=== PATIENT | female | born 1930 | race Caucasian/White ===

== ENCOUNTER 2016-06-14 09:24 | Emergency (ER) | payer MEDICARE, OTHER, MEDICAID ==
[2016-06-14] VITALS (7 sets, daily range): BP systolic 135–146; BP diastolic 77–108; PULSE 70–80; RESP 15–20; O2SAT 95–97
--- NOTE | 2016-06-14 09:24 | ED.REPORT ---
HPI-Chest Pain 40 and Over Date of Service Jun 14, 2016 ED Provider: The patient is an 85 year old female with history of dementia, atrial fibrillation not anticoagulated, diabetes mellitus, hypertension, who was brought to the emergency department by EMS for chest pain that she noticed this morning when she woke up. According to medics the patient described her pain as "pressure" and it was reproducible with palpation. At this time she feels normal and is in no pain. She denies nausea, vomiting, diarrhea, abdominal pain , cough, shortness of breath, fever or chills. Nursing Notes Stated Complaint: CHEST PAIN Nursing Notes Reviewed: Yes Allergies: Uncoded Allergies: PCN, SULFA,CIPRO-DIARRHEA. (Allergy, Unknown, 07/09/04) Penicillin (Allergy, Unknown, 05/17/05) Sulfa (Allergy, Unknown, 05/17/05) Quinolones (Adverse Reaction, Unknown, 07/09/04) DIARRHEA General Time Seen by MD: 09:24 Chief Complaint Chest pain Hx Obtained From: Patient, EMS Arrived By: Ambulance Sudden in Onset?: Yes Onset Occurred: 1 - 4 hours ago Symptom Duration: Since onset Quality: Pressure Radiation: : Does not radiate Migration/Movement: Reports: None Severity: Current: No pain currently Severity: Maximum: Moderate Recent Healthcare: No recent doctor visit, No recent hospitalization Similar Sx Previous: No Past Medical History Past Medical History Atrial fibrillation - not on anticoagulation SBO Diabetes mellitus Dementia Hypertension Osteoarthritis Past Surgical History Bowel resection Hysterectomy Cholecystectomy Family History Noncontributory Smoking History Unknown if Ever Smoker Social History Other Social History: Good social support, Lives with children, Local resident Ambulatory Status Independent Review of Systems Constitutional: Denies: Chills, Fever Respiratory: Denies: Non-productive cough, Shortness of breath Cardiovascular: Reports: Chest pain GI: Denies: Abdominal pain, Diarrhea, Nausea, Vomiting Musculoskeletal: Reports: Joint pain (chronic pain due to osteoarthritis), Denies: Back pain, Extremity pain Skin: Denies Rash Complete sys rev & neg: except as marked. Physical Exam Initial Vital Signs Vital Signs (First) Date Time Temp Pulse Resp B/P Pulse Ox O2 Delivery O2 Flow Rate FiO2 06/14/16 09:34 36.6 80 17 144/82 97 Room Air Initial VS: Reviewed Head / Eyes: Atraumatic, Normocephalic, PERRL ENT: Mucous membranes moist, Conjunctiva normal, No scleral icterus Neck: Supple, Non-tender, Full range of motion Lymphatic: No lymphadenopathy Extremities: Vascular intact, Neuro intact, No swelling, No tenderness Skin: Warm, Dry, No cyanosis Neurologic: Alert, Nonfocal Psychiatric: Mood/affect normal, Behavior normal, Normal thought content General/Constitutional: Awake, Alert, No acute distress, Well appearing Respiratory / Chest: Atraumatic, Breath sounds NL, Breath sounds = bilat, No respiratory distress, No rales, No rhonchi, No wheezing, No stridor, No chest tenderness Cardiovascular: Heart rate NL, Regular rhythm, Heart sounds NL, No murmurs, Peripheral circulation NL, Pulses = bilaterally, No gross BP differential Abdomen: Soft, No guarding, No rebound, BS normoactive, No distention She has suprapubic tenderness on exam that she did not notice until I was pushing on her abdomen. Interpretation & Diagnostics Lab Results Interpretation Result Diagram: 06/14/16 0929 06/14/16 0929 Test 06/14/16 09:29 06/14/16 09:55 White Blood Count 8.3th/mm3 (3.8-10.1) Red Blood Count 5.67mil/mm3 (3.90-5.20) Hemoglobin 16.6g/dL (12.0-15.6) Hematocrit 49.9% (35.0-46.0) Mean Corpuscular Volume 88.0fL (81-100) Mean Corpuscular Hemoglobin 29.3pg (27.0-35.0) Mean Corpuscular Hemoglobin Concent 33.3% (32.0-37.0) Red Cell Distribution Width 14.2% (12.3-15.4) Platelet Count 297bil/L (150-400) Neutrophils (%) (Auto) 52.5% (40-74) Lymphocytes (%) (Auto) 37.8% (14-46) Monocytes (%) (Auto) 7.0% (4-12) Eosinophils (%) (Auto) 2.3% (0-5) Basophils (%) (Auto) 0.2% (0-3) Sodium Level 139mEq/L (134-144) Potassium Level 4.5mEq/L (3.5-5.2) Chloride Level 97mEq/L (97-108) Carbon Dioxide Level 26mmol/L (18-29) Blood Urea Nitrogen 18mg/dL (8-27) Creatinine 0.71mg/dL (0.57-1.00) Estimat Glomerular Filtration Rate 112mL/min (>59) Glucose Level 131mg/dL (60-99) Calcium Level 9.9mg/dL (8.5-10.1) Total Bilirubin 0.4mg/dL (0.0-1.2) Aspartate Amino Transf (AST/SGOT) 25U/L (0-50) Alanine Aminotransferase (ALT/SGPT) 17U/L (0-32) Alkaline Phosphatase 81U/L (25-165) Troponin T < 0.010ug/L (0.0-0.011) Total Protein 8.7g/dL (6.4-8.4) Albumin 4.6g/dL (3.4-5.0) Urine Color Straw (YELLOW) Urine Appearance Clear (CLEAR,HAZY) Urine pH 7.5 (5.0-8.0) Urine Specific [place] 1.009 (1.003-1.035) Urine Protein Negativemg/dL (NEG,TRACE) Urine Glucose (UA) Negativemg/dL (NEGATIVE) Urine Ketones Negativemg/dL (NEGATIVE) Urine Occult Blood Negative (NEGATIVE) Urine Nitrite Negative (NEGATIVE) Urine Bilirubin Negative (NEGATIVE) Urine Urobilinogen Normalmg/dL (NORMAL) Urine Leukocyte Esterase Negative (NEGATIVE) Urine RBC 0-2/hpf (0-2) Urine WBC 0-5/hpf (0-5) Urine Epithelial Cells Few/hpf (NONE-MOD) Urine Crystals None seen (NONE SEEN) Urine Bacteria None/hpf (NONE-FEW) Urine Hyaline Casts None/lpf (NONE) Urine Granular Casts None seen (NONE SEEN) Urine Waxy Casts None seen (NONE SEEN) Urine Red Blood Cell Casts None seen (NONE SEEN) Urine White Blood Cell Casts None seen (NONE SEEN) Urine Mucus None seen (None Seen) Urine Trichomonas None seen (NONE SEEN) Urine Yeast None (NONE SEEN) Urinalysis Comment None Urine Culture Reflexed Not indicated ECG Interpretation ECG Interpretation: Atrial fibrillation with a rate of 73 Time: 09:59 Interpreted by: ED physician X-Ray Chest Interpretation Chest Xray Interpretation: IMPRESSION: Mild cardiomegaly, without acute cardiopulmonary disease. Dictated by: Zander Richard M.D. on 06/14/2016 at 10:18 Interpretation / Wet Read by: Interpret - Radiologist Re-Eval/Medical Decision Source of Hx: Old records, EMS, Family Time of Eval: 10:44 Re-Evaluation/Progress Note: Rechecked the patient. Discussed plan for workup with the patient's family members. She lives with her daughter who woke up to the patient pressing her medical alert. She was complaining of chest pain at this time. The patient felt normal yesterday. At this time her pain is still resolved. Time of Eval: 11:27 Re-Evaluation/Progress Note: Rechecked the patient. Discussed results, diagnosis, and plan for discharge. All questions were addressed. Counseled Regarding: Diagnosis, Lab results, Need for follow-up, When/why to return to ED Discharge & Departure Primary Impression: Chest pain Chest pain type: unspecified Qualified Code: R07.9 - Chest pain, unspecified Discharge Condition All VS Reviewed: Yes Condition: Stable Additional Instructions: Thank you for entrusting us with your care today. Your labs, EKG, and chest x- ray today are reassuring. There is no evidence of anything acutely dangerous at this time. Call Dr. José's office tomorrow morning to schedule a followup appointment for later this week. Return to the emergency department if you develop recurrent pain, shortness of breath, extremity swelling, lightheadedness , dizziness, or any other new or concerning symptoms. Referrals: Inocencio José MD (PCP) Scribe Attestation Portions of this note were transcribed by Sabrina Perkins. I, Dr. Fahad Garcia personally performed the history, physical exam and medical decision-making; I reviewed and confirmed the accuracy of the information in the transcribed note. Signed by: Shaina Russell, 06/14/2015 and 1135. copies to: Inocencio José MD, Kirk H MD Jun 14, 2016 09:24 Sabrina Perkins Jun 14, 2016 09:32
[2016-06-14 09:48] LABS: BASOPHILS % (AUTO) 0.2 % (0-3); EOSINOPHILS % (AUTO) 2.3 % (0-5); Mean Corpuscular Hemoglobin 29.3 pg (27.0-35.0); NEUTROPHILS % (AUTO) 52.5 % (40-74); Platelet Count 297 bil/L (150-400)
[2016-06-14 10:18] LABS: TROPONIN T < 0.010 ug/L (0.0-0.011)
--- NOTE | 2016-06-14 10:20 | DRSVH ---
PROCEDURE: X-RAY CHEST ONE VIEW, PORTABLE ([id number]) INDICATIONS: 85 year-old female with chest pain. TECHNIQUE: One view of the chest was acquired. COMPARISON: [facility], , ABD ACUTE SERIES, 09/01/2014, 20:51. [facility], , CHEST 1VW (PORTABLE), 10/31/2013, 8:50. [facility], CHEST 1VW (PORTABLE), 10/11, 4:31. FINDINGS: Surgical changes and devices: None. Lungs and pleura: No pleural effusions or pneumothorax. Lungs are clear. Mediastinum: Mediastinal contours appear normal. Mild cardiomegaly is unchanged. Bones and chest wall: No suspicious bony lesions. Overlying soft tissues appear unremarkable. IMPRESSION: Mild cardiomegaly, without acute cardiopulmonary disease. Dictated by: Zander Richard M.D. on 06/14/2016 at 10:18 Approved by: Zander Richard M.D. on 06/14/2016 at 10:18
[2016-06-14 10:52] LABS: APPEARANCE,URINE CLEAR (CLEAR,HAZY); COLOR,URINE STRAW (YELLOW); OCCULT BLOOD,URINE NEGATIVE (NEGATIVE); PH,URINE 7.5 (5.0-8.0); UROBILINOGEN,URINE NORMAL (NORMAL)
== END 2016-06-14 12:17 | disposition home or self-care (01) ==
LOC: SED 09:24
DX: R07.89 Other chest pain (principal); I48.91 Unspecified atrial fibrillation; I10 Essential (primary) hypertension; E11.9 Type 2 diabetes mellitus without complications; F03.90 Unspecified dementia, unspecified severity, without behavioral disturbance, psychotic disturbance, mood disturbance, and anxiety; Z88.0 Allergy status to penicillin; Z88.1 Allergy status to other antibiotic agents; Z88.2 Allergy status to sulfonamides

== ENCOUNTER 2016-07-04 12:25 | Observation (INO) | payer MEDICARE, OTHER, MEDICAID ==
[~2016-07-04] VITALS: Ht 165.1 cm; Wt 74.6 kg
[2016-07-04 12:27] VITALS: BP 125/101; PULSE 104; RESP 22; O2SAT 96
[2016-07-04] MEDS ORDERED: Haloperidol 5 mg/mL Inj IVPUSH ONE ×2 (12:50→16:40)
--- NOTE | 2016-07-04 12:50 | ED.REPORT ---
HPI-Altered Mental Status Date of Service Jul 04, 2016 ED Provider: Larry Ordaz MD Pt is an 85 year old female with a hx of dementia, DM and HTN presenting to the ED via EMS complaining of a change in LOC onset at 1125. The pt was with her daughters and right after she ate breakfast, she became combative, was only responsive to her name, and was pulling at her clothes, trying to take them off. The daughters deny these symptoms previously. She denies any recent changes in medication. In the ER, pt is responsive to questions, but is confused of her birthday and location. She denies any pain. The pt was seen in the ED in the beginning of June for CP. Nursing Notes Stated Complaint: NEURAL Chief Complaint: Neuro Symptoms/ Deficits Nursing Notes Reviewed: Yes ([place], [place] not reconciled) Allergies: Coded Allergies: amoxicillin (Verified Allergy, Unknown, 07/04/16) donepezil (Verified Allergy, Unknown, 07/04/16) lorazepam (Verified Allergy, Unknown, 07/04/16) promethazine (Verified Allergy, Unknown, 07/04/16) Uncoded Allergies: PCN, SULFA,CIPRO-DIARRHEA. (Allergy, Unknown, 07/09/04) Penicillin (Allergy, Unknown, 05/17/05) Sulfa (Allergy, Unknown, 05/17/05) Quinolones (Adverse Reaction, Unknown, 07/09/04) DIARRHEA Scheduled Amlodipine (Amlodipine) 5 Mg Tablet 5 MG PO DAILY Magnesium Oxide (Magnesium) 250 Mg Tablet 250 MG PO BID Metformin (Metformin) 500 Mg Tablet 500 MG PO BID Scheduled PRN Hydrocodone-Acetaminophen 5-325 mg (Hydrocodone-Acetaminophen 5-325 mg) 1 Each Tablet 1.5 TABLET PO BID PRN PRN For Pain Miscellaneous Medications Cholecalciferol (Vitamin D3) (Vitamin D3) 5,000 Unit Capsule 5,000 UNIT PO Oxybutynin Chloride (Oxybutynin Chloride) 5 Mg Tablet 5 MG PO General Time Seen by MD: 12:20 Chief Complaint Not acting right Hx Obtained From: Patient, EMS Arrived By: Ambulance Sudden in Onset?: Yes Onset Occurred: 1 - 4 hours ago Symptom Duration: Since onset Progression since Onset: Unchanged Severity: Current: No pain currently Severity: Maximum: No pain Recent Healthcare: No recent hospitalization, Recent doctor visit Similar Sx Previous: No Past Medical History Past Medical History Atrial fibrillation - not on anticoagulation SBO Diabetes mellitus Dementia Hypertension Osteoarthritis Past Surgical History Laparotomy for perforated colon Appendectomy Tonsillectomy Hysterectomy Cholecystectomy Ankle Right carpal tunnel Cataracts Family History Noncontributory Smoking History Unknown if Ever Smoker Social History Other Social History: Good social support, Lives with children, Local resident Ambulatory Status Independent Review of Systems Unable to Obtain ROS Mental status Neurologic: Reports: Abnormal movement, Change LOC Psychiatric: Reports: Agitation Physical Exam Initial Vital Signs Vital Signs (First) Date Time Temp Pulse Resp B/P Pulse Ox O2 Delivery O2 Flow Rate FiO2 07/04/16 12:27 36.0 104 22 125/101 96 Room Air Initial VS: Reviewed, Vital signs abnormal ENT: Mucous membranes moist, Conjunctiva normal, No scleral icterus Abdomen / GI: Soft Skin: Warm, Dry, No cyanosis Psychiatric: Mood/affect normal, Behavior normal, Normal thought content General/Constitutional: Awake Restless and agitated. No signs of trauma. Head / Eyes: Atraumatic, Normocephalic, PERRL, EOMI Neck: Atraumatic, Supple Respiratory / Chest: Breath sounds NL, Breath sounds = bilat, No respiratory distress, No rales, No rhonchi, No wheezing Cardiovascular: Heart rate NL, Regular rhythm, Heart sounds NL, No murmurs, Peripheral circulation NL Neurologic: Speech NL Confused, won't answer questions. Moves symmetrically without gross focal deficit. Lower Extremity / Pelvis / MS: Neurologic intact, Vascular intact Trace edema of ankles. Interpretation & Diagnostics Lab Results Interpretation Result Diagram: 07/04/16 1439 07/04/16 1439 Test 07/04/16 12:50 07/04/16 14:39 Urine Color Yellow (YELLOW) Urine Appearance Clear (CLEAR,HAZY) Urine pH 6.5 (5.0-8.0) Urine Specific [place] 1.020 (1.003-1.035) Urine Protein Tracemg/dL (NEG,TRACE) Urine Glucose (UA) 250mg/dL (NEGATIVE) Urine Ketones Negativemg/dL (NEGATIVE) Urine Occult Blood Negative (NEGATIVE) Urine Nitrite Negative (NEGATIVE) Urine Bilirubin Negative (NEGATIVE) Urine Urobilinogen Normalmg/dL (NORMAL) Urine Leukocyte Esterase Negative (NEGATIVE) Urine RBC 0-2/hpf (0-2) Urine WBC 0-5/hpf (0-5) Urine Epithelial Cells Few/hpf (NONE-MOD) Urine Crystals None seen (NONE SEEN) Urine Bacteria None/hpf (NONE-FEW) Urine Hyaline Casts None/lpf (NONE) Urine Granular Casts None seen (NONE SEEN) Urine Waxy Casts None seen (NONE SEEN) Urine Red Blood Cell Casts None seen (NONE SEEN) Urine White Blood Cell Casts None seen (NONE SEEN) Urine Mucus None seen (None Seen) Urine Trichomonas None seen (NONE SEEN) Urine Yeast None (NONE SEEN) Urinalysis Comment None Urine Culture Reflexed Not indicated White Blood Count 10.4th/mm3 (3.8-10.1) Red Blood Count 5.21mil/mm3 (3.90-5.20) Hemoglobin 15.5g/dL (12.0-15.6) Hematocrit 45.2% (35.0-46.0) Mean Corpuscular Volume 86.8fL (81-100) Mean Corpuscular Hemoglobin 29.8pg (27.0-35.0) Mean Corpuscular Hemoglobin Concent 34.3% (32.0-37.0) Red Cell Distribution Width 13.7% (12.3-15.4) Platelet Count 288bil/L (150-400) Neutrophils (%) (Auto) 74.8% (40-74) Lymphocytes (%) (Auto) 18.2% (14-46) Monocytes (%) (Auto) 5.8% (4-12) Eosinophils (%) (Auto) 0.8% (0-5) Basophils (%) (Auto) 0.2% (0-3) Prothrombin Time 10.6sec (8.1-12.5) Prothromb Time International Ratio 0.99ratio Sodium Level 140mEq/L (134-144) Potassium Level 4.5mEq/L (3.5-5.2) Chloride Level 98mEq/L (97-108) Carbon Dioxide Level 26mmol/L (18-29) Blood Urea Nitrogen 21mg/dL (8-27) Creatinine 0.89mg/dL (0.57-1.00) Estimat Glomerular Filtration Rate 86mL/min (>59) Glucose Level 214mg/dL (60-99) Calcium Level 9.7mg/dL (8.5-10.1) Total Bilirubin 0.4mg/dL (0.0-1.2) Aspartate Amino Transf (AST/SGOT) 34U/L (0-50) Alanine Aminotransferase (ALT/SGPT) 21U/L (0-32) Alkaline Phosphatase 77U/L (25-165) Troponin T 0.022ug/L (0.0-0.011) Total Protein 8.1g/dL (6.4-8.4) Albumin 4.4g/dL (3.4-5.0) Lab Results Interpretation: UA is negative ECG Interpretation ECG Interpretation: Rate controlled afib. Q waves anteriorally. Prior old anteroseptal infarct. Nonspecific T wave abnormality laterally, 1 ABL, not clear that they are changed. Interval change from June 14 2016. Time: 13:07 Interpreted by: ED physician X-Ray Chest Interpretation Chest Xray Interpretation: IMPRESSION: Low lung volumes and mild cardiomegaly. Dictated by: Alivia Cheung M.D. on 07/04/2016 at 13:51 View: Portable, 1 view Interpretation / Wet Read by: Interpret - Radiologist CT Head Interpretation IMPRESSION: 1. No acute intracranial findings. 2. Extensive findings associated with chronic microvascular ischemic changes. Dictated by: Alivia Cheung M.D. on 07/04/2016 at 13:59 Study: Head CT no contrast Interpretation / Wet Read by: Interpret - Radiologist Re-Eval/Medical Decision Med Decision/Clinical Course This is an 85-year-old female with a history of chronic atrial fibrillation not on anticoagulation presents with sudden onset patient. Other family, got to the bathroom, was being assisted in 7 became disoriented, and agitated and absolutely not herself. There was no gross focal deficits-no obvious weakness extremity or leg, but a profound change occurred. This happened at around 11: 30. No current history of trauma, infection, medication change. Accu-Chek was normal for EMS. On arrival patient still agitated she trying to get up out of bed, she will not cooperate with exam, she will not interact normally or follow commands for an NIH stroke scale, but she struggles symmetrically uses both arms and both legs without gross deficit and she moves around. She will answer an occasional question when asked if the pain she says no. But she does not provide any follow-up questions or interact normally. She does have a baseline history of dementia, but this represents a sudden departure from baseline according the family. Workup is being pursued. Accu-Chek was normal. CT scan of the head was obtained, was negative acute, but lots of microvascular changes. Initial attempts at IV were unsuccessful. The family thought they might be able to settle her down and reports she has had some paradoxical reactions to all antipsychotics about 6 years ago so they wanted to hold off and see if the family members can help settle her down. Successful getting her calmed down for CT, which is more agitated, attempts at IV were unsuccessful, and finally agreed-the patient received an IM dose of 2.5 mg of Haldol. The patient is being turned over to oncoming provider at change of shift as the evaluation is still underway. Source of Hx: Old records Re-Evaluation/Progress #1: Time of Eval: 13:23 Patient Status: Condition improved Re-Evaluation/Progress Note: Discussed the episode with the pt's family. Re-Evaluation/Progress #2: Time of Eval: 16:49 )( Re-Eval Neurologic Exam: Confused Re-Evaluation/Progress Note: Dr. Winslow rechecked patient. Discussed history with patient's family. The patient has had a previous episode of similar symptoms many years ago, which resolved with no known cause found. Code status discussed with patient's family, patient is DNR with limited interventions - antibiotics okay. Discussed with patient's family plan for admit. Patient's family agrees with plan for care and all questions were addressed. On exam patient's lungs are clear, abdomen soft and non-tender. She is agitated and confused, moving all four extremities spontaneously and equally, with nonsensical verbalizations. 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, Agrees with plan, Accepts admit Counseled Regarding: Diagnosis, Lab results, Need for admission Patient Discharge & Departure Shift Change Sign-Out Patient Care Transferred: Yes Discussed Complaint(s): Yes Laboratory Evaluation: Ordered, not yet done Imaging Studies: Imaging discussed Impression: Primary Impression: Altered mental status Altered mental status type: unspecified Qualified Code: R41.82 - Altered mental status, unspecified Additional Impression: Agitation Disposition: ADMITTED TO HOSPITAL Discharge Condition All VS Reviewed: Yes Condition: Improved Referrals: Inocencio José MD (PCP) Shaina Attestation Portions of this note were transcribed by Lori Garrett. I, Dr. Ordaz personally performed the history, physical exam and medical decision-making; I reviewed and confirmed the accuracy of the information in the transcribed note. Signed by: Shaina Cox, 04/07/2016 and 1450. Portions of this note were transcribed by Teri Zayas. I, Dr. Winslow, personally performed the history, physical exam, and medical decision-making; I reviewed and confirmed the accuracy of the information in the transcribed note. Signed by: Shaina Gilbert, 07/04/2016, 17:26 copies to: Inocencio José MD, Matthew F MD Jul 04, 2016 12:50 LORI AGRRETT Jul 04, 2016 12:52 TERI ZAYAS Jul 04, 2016 16:58
[2016-07-04] MEDS ORDERED: METF500T4 PO (13:37)
[2016-07-04] MEDS ORDERED: CHOL5000 PO (13:37)
[2016-07-04] MEDS ORDERED: MAGN250T29 PO (13:37)
[2016-07-04] MEDS ORDERED: AMLO5TAB2 PO (13:37)
[2016-07-04] MEDS ORDERED: OXYB5TAB10 PO (13:37)
[2016-07-04 13:38] LABS: APPEARANCE,URINE CLEAR (CLEAR,HAZY); COLOR,URINE YELLOW (YELLOW); PH,URINE 6.5 (5.0-8.0)
[2016-07-04] MEDS ORDERED: HYDR-4003 PO ×2 (13:39→19:41)
[2016-07-04 13:44] LABS: OCCULT BLOOD,URINE NEGATIVE (NEGATIVE); UROBILINOGEN,URINE NORMAL (NORMAL)
--- NOTE | 2016-07-04 13:54 | DRSVH ---
PROCEDURE: X-RAY CHEST ONE VIEW, PORTABLE ([id number]) INDICATIONS: Altered mental status TECHNIQUE: One view of the chest was acquired. COMPARISON: [facility], CR, XR CHEST 1VW (PORTABLE), 06/14/2016, 10:06. FINDINGS: Surgical changes and devices: None. Lungs and pleura: Lung volumes are low. No pleural effusions or pneumothorax. Lungs are clear. Mediastinum: Mediastinal contours appear normal. Heart size is mildly enlarged, as before. Bones and chest wall: No suspicious bony lesions. Overlying soft tissues appear unremarkable. IMPRESSION: Low lung volumes and mild cardiomegaly. Dictated by: Alivia Cheung M.D. on 07/04/2016 at 13:51 Approved by: Alivia Cheung M.D. on 07/04/2016 at 13:52
--- NOTE | 2016-07-04 14:03 | DRSVH ---
PROCEDURE: CT BRAIN WITHOUT CONTRAST ([id number]) INDICATIONS: Altered Mental Status TECHNIQUE: Noncontrast 4.5 mm thick angled axial sections acquired from the foramen magnum to the vertex, with c oronal reformats. COMPARISON: [facility], [place], CT, BRAIN W/O CONTRAST, 08/23/2014, 20:59. FINDINGS: Image quality: Excellent. CSF spaces: Basal cisterns are patent. No extra-axial fluid collections. The ventricles are symmet sherly in size and shape. Brain: No intracranial bleeds or masses. There is marked cerebral volume loss for age, with resulta nt ventricular and sulcal prominence. There are severe periventricular and deep white matter chronic small vessel ischemic changes. There is intracranial internal carotid artery atherosclerosis. Ther e are basal ganglia calcifications. Skull and face: Calvarium and visualized facial bones appear intact, without suspicious lesions. Sinuses: Visualized sinuses and mastoids are clear. IMPRESSION: 1. No acute intracranial findings. 2. Extensive findings associated with chronic microvascular ischemic changes. Dictated by: Alivia Cheung M.D. on 07/04/2016 at 13:59 Approved by: Alivia Cheung M.D. on 07/04/2016 at 14:01
[2016-07-04 15:38] LABS: BASOPHILS % (AUTO) 0.2 % (0-3); EOSINOPHILS % (AUTO) 0.8 % (0-5); MONOCYTES % (AUTO) 5.8 % (4-12); Mean Corpuscular Hemoglobin 29.8 pg (27.0-35.0); Mean Corpuscular Volume 86.8 fL (81-100); NEUTROPHILS % (AUTO) 74.8 % (40-74); Platelet Count 288 bil/L (150-400)
[2016-07-04 15:51] LABS: INR 0.99 ratio
[2016-07-04 17:32] VITALS: BP 147/98
[2016-07-04] MEDS ORDERED: Ondansetron 2 mg/mL 2 mL Inj IV PRN (17:45)
[2016-07-04] MEDS ORDERED: CEFTRIAXONE IV SCH (21:05)
[2016-07-04] MEDS ORDERED: DEXTROSE 5% IV SCH (21:05)
[2016-07-04] MEDS: Nystatin 100,000 Unit/Gm 15 Gm Powder TOPICAL SCH (22:05)
--- NOTE | 2016-07-04 22:15 | PCM.HPMED ---
Subjective Date of Service Jul 04, 2016 Primary Provider: Admitting Physician: Johnny Sandoval MD Primary Care Physician: Inocencio José MD Attending Physician: Johnny Sandoval MD Chief Complaint: Irritable HISTORY was OBTAINED FROM DAUGHTER/ [facility] NOTES History of present illness 85-year-old female, rhinorrhea, progressive dementia in the last 3 years, family members getting over URI, went to the bathroom this morning came around confused then not responsive verbally to daughter then started flailing her arms and legs despite the fact that she Saying Nothing Hurt. In the emergency department, Haldol 2 since she was flailing at staff, improved with Panther tent and Haldol, WBC mildly elevated with left shift.No prior meningitis/encephalitis. With every illness recently that was associated with Ativan or anesthetic she seems to have encephalopathy that lasts for many days. Daughter indicates she has chronic diarrhea/constipation since resection decades ago. Intermittent sacral decubitus. Current groin intertrigo. Chronic oxybutynin use. Review of Systems - unable to ask questions due to altered mental status Uses walker at baseline FAMILY HX daughter with cough SOCIAL HX staying with daughter MEDICATIONS Scheduled Amlodipine (Amlodipine) 5 Mg Tablet 5 MG PO DAILY Magnesium Oxide (Magnesium) 250 Mg Tablet 250 MG PO BID Metformin (Metformin) 500 Mg Tablet 500 MG PO BID Scheduled PRN Hydrocodone-Acetaminophen 5-325 mg (Hydrocodone-Acetaminophen 5-325 mg) 1 Each Tablet 1.5 TABLET PO BID PRN PRN For Pain Miscellaneous Medications Cholecalciferol (Vitamin D3) (Vitamin D3) 5,000 Unit Capsule 5,000 UNIT PO Oxybutynin Chloride (Oxybutynin Chloride) 5 Mg Tablet 5 MG PO Past Medical/Surgical HX Diabetes mellitus type II Chronically low magnesium Small bowel obstruction status post lysis of adhesion and prior colon resection due to perforated colon Dementia Overactive bladder Hypertension Osteoarthritis appendectomy Tonsillectomy Hysterectomy Cholecystectomy Ankle Right carpal tunnel Cataracts Allergies Coded Allergies: amoxicillin (Verified Allergy, Unknown, 07/04/16) donepezil (Verified Allergy, Unknown, 07/04/16) lorazepam (Verified Allergy, Unknown, 07/04/16) promethazine (Verified Allergy, Unknown, 07/04/16) Uncoded Allergies: PCN, SULFA,CIPRO-DIARRHEA. (Allergy, Unknown, 07/09/04) Penicillin (Allergy, Unknown, 05/17/05) Sulfa (Allergy, Unknown, 05/17/05) Quinolones (Adverse Reaction, Unknown, 07/09/04) DIARRHEA PMH Social History Hx Alcohol Use: No Hx Substance Use: No Hx Tobacco Use: No Smoking Status: Unknown if Ever Smoker Exam Vital Signs Vital Sign - Last Date Time Temp Pulse Resp B/P Pulse Ox O2 Delivery O2 Flow Rate FiO2 07/04/16 17:32 147/98 07/04/16 12:27 36.0 104 22 96 Room Air Lab and Diagnostics Labs Exam on admission NAD alert, asking for sip of water, constantly in putting blankets on and off, in the Panther tent comfortable NC/AT no icterus no injected eyes EOMI PERRL /no pharyngeal lesions/ no oral lesions / hearing intact//no enlarged parotids Supple neck, reflexes by herself on command, opens mouth by herself on command CTAB equal chest rise / no accessory muscle use / speaks in full sentences / no rrw RRR S1 S2 / no mrg / 2+ radial pulses Soft nt nd + BS no hepatosplenomegaly No edema no cyanosis no ecchymosis of lower extremities No rash / no jaundice GARCIA EKG afib no significant ST changes UA neg pending respiratory viral pcr /u strep pending stool cx Imaging CT BRAIN WITHOUT CONTRAST ([id number]) INDICATIONS: Altered Mental Status TECHNIQUE: Noncontrast 4.5 mm thick angled axial sections acquired from the foramen magnum to the vertex, with coronal reformats. COMPARISON: [facility], CT, BRAIN W/O CONTRAST, 08/23/2014, 20:59. FINDINGS: Image quality: Excellent. CSF spaces: Basal cisterns are patent. No extra-axial fluid collections. The ventricles are symmetric in size and shape. Brain: No intracranial bleeds or masses. There is marked cerebral volume loss for age, with resultant ventricular and sulcal prominence. There are severe periventricular and deep white matter chronic small vessel ischemic changes. There is intracranial internal carotid artery atherosclerosis. There are basal ganglia calcifications. Skull and face: Calvarium and visualized facial bones appear intact, without suspicious lesions. Sinuses: Visualized sinuses and mastoids are clear. IMPRESSION: 1. No acute intracranial findings. 2. Extensive findings associated with chronic microvascular ischemic changes. X-RAY CHEST ONE VIEW, PORTABLE ([id number]) INDICATIONS: Altered mental status TECHNIQUE: One view of the chest was acquired. COMPARISON: [facility], CR, XR CHEST 1VW (PORTABLE), 06/14/2016, 10: 06. FINDINGS: Surgical changes and devices: None. Lungs and pleura: Lung volumes are low. No pleural effusions or pneumothorax. Lungs are clear. Mediastinum: Mediastinal contours appear normal. Heart size is mildly enlarged , as before. Bones and chest wall: No suspicious bony lesions. Overlying soft tissues appear unremarkable. IMPRESSION: Low lung volumes and mild cardiomegaly. Result Diagram: 07/04/16 1439 07/04/16 1439 Assessment & Plan Active issues and reason for admission Encephalopathy with leukocytosis, treating as meningitis, home sick URI contacts --rocephine 2g x 1, pending pcr respiratory diarrhea/chronic intermittent --pending stool cx Chronic issues known prior to admission, present on admission Diabetes mellitus type II Chronically low magnesium Small bowel obstruction status post lysis of adhesion and prior resection due to ulcerations Dementia Overactive bladder --SSI, discussed w/ daughter regarding stopping oxybutynin in dementia patient due to anticholinergic effect and to f/u w/ urologist --held all po meds for now Diet DM DVT prophylaxis lovenox Code discuss w/ daughter in the morning Assessment and plan were discussed with daughter on the phone Johnny Sandoval MD Jul 04, 2016 22:15
--- NOTE | 2016-07-04 22:30 | NUR ---
admit Pt arrived in soma bed, daughters with her, belongings with daughters. Pt uncooperative, confused, and agitated. Admit nurse did admission receiving information from daughters. Will monitor.
[2016-07-05 00:18] VITALS: BP 139/75; PULSE 75; RESP 20; O2SAT 95
--- NOTE | 2016-07-05 01:30 | NUR ---
mentation Pt slept well, up to bedside commode x2 with nurse and ROLLER BEARING INSPECTOR. Cooperative and pleasant, confused. Will continue to monitor.
[2016-07-05 05:45] VITALS: BP 145/93; PULSE 86; RESP 20; O2SAT 95
[2016-07-05 06:19] LABS: BASOPHILS % (AUTO) 0.4 % (0-3); EOSINOPHILS % (AUTO) 0.8 % (0-5); MONOCYTES % (AUTO) 10.2 % (4-12); Mean Corpuscular Hemoglobin 29.9 pg (27.0-35.0); Mean Corpuscular Volume 85.2 fL (81-100); Platelet Count 303 bil/L (150-400)
--- NOTE | 2016-07-05 06:28 | NUR ---
mentation Significant improvement, pt stated name, and knew she was in the hospital. Said she was not sure which hospital. No complaints of pain or discomfort. Cooperative with cares and conversational. Will continue to monitor.
[2016-07-05 06:40] LABS: Magnesium 1.9 mg/dL (1.6-2.6)
[2016-07-05] MEDS ORDERED: Glucose 40% Oral Gel 15 Gm Tube PO PRN (08:05)
[2016-07-05] MEDS: Nystatin 100,000 Unit/Gm 15 Gm Powder TOPICAL SCH ×2 (08:30→20:30)
[2016-07-05 09:23] VITALS: BP 142/84; PULSE 70; RESP 19; O2SAT 98
--- NOTE | 2016-07-05 10:19 | PCM.PNMED ---
Subjective Date of Service Jul 05, 2016 Subjective Mentation improved from admission per nursing reports. Patient is evaluated at bedside. confused. AOx1 On return visit, she was AOx3, eating lunch. Conversing with sisters. Sisters states that patient is near her baseline. Exam Vital Signs Vital Sign - Last Date Time Temp Pulse Resp B/P Pulse Ox O2 Delivery O2 Flow Rate FiO2 07/05/16 09:23 36.8 70 19 142/84 98 Room Air Exam General: lying comfortably in soma bed HEENT: EOMI. Anicteric sclerae, Moist Mucous Membranes Neck: Neck supple with full ROM, no tenderness or stiffness with flexion Chest & Lungs: b/l air sound, no crackles, wheezes, or coarse breathing Cardiovascular: RRR, No Murmurs/Rubs/Gallops Abdomen: Soft, obese, Non-tender, Non-distended, No masses, Normoactive bowel tones, Extremities: no cyanosis/clubbing/edema bilaterally Neurological: alert and oriented x3, no focal deficits IVs and Medications Medications Reviewed: Medications were reviewed in detail Lab and Diagnostics Result Diagram: 07/05/16 0545 07/05/16 0545 Assessment & Plan Patient is an 85yof with MHx DMII, dementia, HTN, and colon resection presented with acute AMS, initially admitted for presumed meningitis. AMS, present on admission, resolving -- Mentation improved from the initial presentation in a wax-wane pattern -- Electrolytes and CBC unremarkable. Respiratory PCR negative including procalcitonin -- CT-head unremarkable for acute changes, showed extensive microvascular ischemic changes. -- Altered mentation most likely multifactorial: dementia worsened by Oxybutynin -- Added thiamine, holding oxybutynin indefinitely, and D/c ceftriaxone/[facility] bed. Chronic diarrhea, present on admission, stable -- Stool PCR pending -- Patient does not have any diarrhea while here however. Diabetes mellitus type II, non insulin dependent, present on admission, stable -- Placed on sliding scale. 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 -- Abstain from anticholinergics Overactive bladder, present on admission, ongoing -- D/c oxybutynin -- Will need to coordinate with PCP out patient for alternatives Disposition: patient will likely be d/c tmrw, pending continue improvement of metal status. Attending Statement The patient was seen and examined together with Dr. Scooby Moreau on 07/05/2016 and I agree with the history, exam and plan as outlined in the note above. Scooby Morris DO Jul 05, 2016 10:19 Trip Ríos MD Jul 05, 2016 14:49
[2016-07-05] MEDS ORDERED: Insulin LISPRO 300 Unit/3 mL Inj SUBQ SCH (12:00)
[2016-07-05] MEDS: Insulin LISPRO Low-Dose Scale SUBQ SCH ×3 (12:00→22:00)
--- NOTE | 2016-07-05 12:18 | NUR ---
Evaluation completed. Please go to "Notes" then click on "Assessments and Notes" (bottom left corner of screen). Then select appropriate discipline tab on top of screen.
[2016-07-05 14:05] VITALS: BP 110/68; PULSE 69; RESP 19; O2SAT 97
--- NOTE | 2016-07-05 15:06 | NUR ---
Case Management: TAY given and explained. Patient signed, original in chart. copy given to patient. 07/05/16 at 2:50pm. CPerryRNCCM.
[2016-07-05] MEDS: HYDROcodone-APAP 7.5-325 mg Tablet PO PRN (15:07)
--- NOTE | 2016-07-05 16:20 | NUR ---
Social Work-initial assessment: Data:See initial assessment. Pt is a 85 y/o female who was admitted on 07/04/16 for AMS per H&P. Pt's insurance is [facility] and PCP is Inocencio José MD. EMR Reviewed. ANTOLIN met with pt's daughter Cielo [phone] and Carol [phone] at bedside to discuss discharge planning, SW role explained. Pt resides at home with daughter Cielo who provides 24/7 care for pt. If Cielo is not home, she has people set up to be with pt. Pt uses a fww at baseline and does not drive. Pt has no HH history, but has been to [facility] in the past. Pt has no alf care or VA benefits. SW discussed DPOA/ advanced directive with family, daughters states they have completed this paperwork, SW encouraged them to bring a copy into the hospital. Daughter states pt is almost back at her baseline and will plan to take pt home at discharge. R/O HH services. SW placed phone number and plan on white board in room. SW will continue to follow. Assessment:Pt who has 24/7 care at home. Plan:Pt to discharge home with daughter when medically stable. R/O HH services. SW will continue to follow. KALEB Talavera Addendum: 07/05/16 at 1624 by SHAVON MUJICA SS Amended: Links added.
--- NOTE | 2016-07-05 16:40 | NUR ---
spiritual care: pt request caring/conversational visit. dtrs in room, pt engaged conversationally, pleasantly. some confusion, but pt seemed eager to show her grasp of details, surroundings and memory. Pt jain, not currently connected with moravian, recalled hymns and prayer as source of comfort/alignment. Family shared memories of pt's son-- of illness in 2013.
[2016-07-05] MEDS ORDERED: Haloperidol Decanoate 50 mg/mL Inj IM PRN (18:45)
--- NOTE | 2016-07-05 20:06 | NUR ---
Agitation Pt cooperative this morning, up in chair for meals and throughout the day. Daughters in room with her. Answering some questions appropriately, still some confusion. Agitation escalated in the late afternoon, trying to take clothes off, wanting to get up and walk around the room, picking at arm band, raising her voice and her daughters and staff members. Soma bed discontinued this morning, will reinstate when she goes to bed. Will continue with current plan of care.
--- NOTE | 2016-07-05 20:21 | NUR ---
Agitation/[place] bed Pt appears agitated. Daughters left for the night. Pt appears unstable on feet, wearing yellow socks. Pt getting increasingly agitated, pushing help away and stating "you, go away". Pt stated to be tired but wanted to search for a room elsewhere. Pt required help from 2 personnel to get into bed. Call light in reach. Music playing for comfort/distraction. Will continue with frequent rounding.
[2016-07-05 23:41] VITALS: BP 132/88; PULSE 67; RESP 18; O2SAT 97
[2016-07-06 02:08] LABS: Free Thyroxine Index 2.4 (1.2-4.9); T3 Uptake 33 % (24-39); Thyroxine (T4) 7.4 ug/dL (4.5-12.0)
[2016-07-06 06:08] LABS: Mean Corpuscular Hemoglobin 29.4 pg (27.0-35.0); Mean Corpuscular Volume 85.8 fL (81-100)
[2016-07-06 06:14] LABS: Vitamin B12 935 pg/mL (211-946)
[2016-07-06 06:31] VITALS: BP 137/93; PULSE 76; RESP 18; O2SAT 98
[2016-07-06] MEDS: Insulin LISPRO Low-Dose Scale SUBQ SCH ×4 (08:26→21:37)
[2016-07-06] MEDS: Nystatin 100,000 Unit/Gm 15 Gm Powder TOPICAL SCH ×2 (08:28→21:30)
--- NOTE | 2016-07-06 09:07 | PCM.PNMED ---
Subjective Date of Service Jul 06, 2016 Subjective AMS overnight, combative per nursing. Today, patient sitting upright, eating. Alert to self only. Baseline, patient can feed and dressed self per daughter. Exam Vital Signs Vital Sign - Last Date Time Temp Pulse Resp B/P Pulse Ox O2 Delivery O2 Flow Rate FiO2 07/06/16 06:31 36.7 76 18 137/93 98 Room Air Intake and Output 07/05/16 07/05/16 07/06/16 Cumulative From/Thru 15:00 23:00 07:00 07/04/16 12:27 - 07/06/16 00:05 Intake Total 125 ml 686 ml 811 ml Output Total 300 ml 200 ml 500 ml Balance -175 ml 486 ml 311 ml Intake Oral 125 ml 686 ml 811 ml Output Urine Total 300 ml 200 ml 500 ml # Voids 3 2 5 # Bowel Movements 1 1 Exam General: sitting upright, eating HEENT: EOMI. Anicteric sclerae, Moist Mucous Membranes Neck: Neck supple with full ROM, no tenderness or stiffness with flexion Chest & Lungs: b/l air sound, no crackles, wheezes, or coarse breathing Cardiovascular: RRR, No Murmurs/Rubs/Gallops Abdomen: Soft, obese, Non-tender, Non-distended, No masses, Normoactive bowel tones, Extremities: no cyanosis/clubbing/edema bilaterally Neurological: alert and oriented x1, no focal deficits, equally moving on all 4 limbs IVs and Medications Medications Reviewed: Medications were reviewed in detail Lab and Diagnostics Result Diagram: 07/06/16 0535 07/06/16 0535 Assessment & Plan Patient is an 85yof with MHx DMII, dementia, HTN, and colon resection presented with acute AMS, initially admitted for presumed meningitis. AMS, present on admission, resolving -- Mentation improved from the initial presentation in a wax-wane pattern -- Electrolytes and CBC unremarkable. Respiratory PCR negative including procalcitonin -- CT-head unremarkable for acute changes, showed extensive microvascular ischemic changes. -- Altered mentation most likely multifactorial: dementia worsened by Oxybutynin -- Added thiamine, holding oxybutynin indefinitely, and D/c ceftriaxone/soma bed. -- Seroquel 12.5mg nightly, Haldol PRN Acute kidney injury, present on admission, active -- Creatine from 0.7 to 1.1, likely inadequate PO intake -- Fluid hydration. Chronic diarrhea, present on admission, stable -- Stool PCR pending -- Patient does not have any diarrhea while here however. Diabetes mellitus type II, non insulin dependent, present on admission, stable -- Placed on sliding scale. 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 -- Abstain from anticholinergics Overactive bladder, present on admission, ongoing -- D/c oxybutynin -- Will need to coordinate with PCP out patient for alternatives Disposition: patient will likely be d/c tmrw, pending continue improvement of metal status. Attending Statement The patient was seen and examined together with Dr. Scooby Morris on 07/06/2016 and I have agree with the assessment and plan of care as noted above. Scooby Morris DO Jul 06, 2016 09:07 Trip Ríos MD Jul 06, 2016 15:14
[2016-07-06] MEDS: 0.9% Sodium Chloride 1,000 ML IV SCH ×2 (10:02→18:45)
[2016-07-06 13:40] VITALS: BP 102/52; PULSE 76; RESP 18; O2SAT 97
--- NOTE | 2016-07-06 16:04 | NUR ---
Behavior/diversional activity Pt was pleasant and cooperative during initial assessment and medication administration. Pt sitting up in chair for meal, fell asleep in chair, slumped over after completion of meal. This RN came to bedside, encouraging pt to move from chair to bed, pt was reluctant to move. This RN and FILLER ROOM ATTENDANT were able to get pt up and transferred to [facility] bed. IV fluids initiated on pt. IV line covered, pt rested quietly for several hours. Family came to the bedside, pt was up to chair with bed alarm in place. Pt was given pink tub with wash clothes, blankets and hand towel to fold. Pt has been pleasant and distracted through out the shift. Careful attention has been give to IV line as pt does pick at line and armband. Family at bedside, diversional activity in place, will continue to monitor.
[2016-07-06 21:25] VITALS: BP 124/75; PULSE 75; RESP 18; O2SAT 97
[2016-07-07] MEDS: 0.9% Sodium Chloride 1,000 ML IV SCH (01:07)
[2016-07-07] MEDS: HYDROcodone-APAP 7.5-325 mg Tablet PO PRN (04:27)
[2016-07-07 04:47] VITALS: BP 171/95; PULSE 72; RESP 18; O2SAT 98
--- NOTE | 2016-07-07 06:40 | NUR ---
Mental Status Pt alert,remains very confused, oriented to self only, impulsive, intermittent agitation, pulled out IV one time,removed her gown by self. Reoriented pt frequently, offer water and toilet pt, keep room quiet,soma bed continue.
--- NOTE | 2016-07-07 08:27 | PCM.DIMED ---
Discharge Instructions Date of Service Jul 07, 2016 Dates of Hospitalization Jul 04, 2016 at 15:01 Discharge Diagnosis Discharge Diagnosis AMS, present on admission, stable Acute kidney injury, present on admission, resolved Chronic diarrhea, present on admission, stable Diabetes mellitus type II, non insulin dependent, present on admission, stable Chronically low magnesium, present on admission, ongoing Dementia, present on admission, ongoing Overactive bladder, present on admission, ongoing Patient Instructions AMS, present on admission, resolving -- You were admitted for altered mentation. I suspect this is due to a combination of your underlining dementia, worsened by a medication you took called oxybutynin -- We have discontinued your oxybutynin. 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 -- Abstain from anticholinergic medications -- You have significant sun-downing. -- We are sending you home with Seroquel 12.5mg, to be taken nightly for this Overactive bladder, present on admission, ongoing -- Oxybutynin has been discontinued. -- Please follow-up with your primary care provider within 1wk for alternatives treatment of Overactive bladder. Follow-up Provider: Inocencio José MD Follow-up with PCP in: 1 week Scooby Morris DO Jul 07, 2016 08:27
[2016-07-07] MEDS ORDERED: QUET25TA73 PO (08:28)
[2016-07-07] MEDS: Insulin LISPRO Low-Dose Scale SUBQ SCH ×2 (09:08→12:18)
[2016-07-07] MEDS: Nystatin 100,000 Unit/Gm 15 Gm Powder TOPICAL SCH (09:09)
--- NOTE | 2016-07-07 12:42 | PCM.PNMED ---
Subjective Date of Service Jul 07, 2016 Subjective Slept overnight on seroquel. No sun downing. Today, patient is without new complaints. Daughter state that she's not at baseline. She would like tertiary care placement for her mom. Exam Vital Signs Vital Sign - Last Date Time Temp Pulse Resp B/P Pulse Ox O2 Delivery O2 Flow Rate FiO2 07/07/16 04:47 36.5 72 18 171/95 98 Room Air Intake and Output 07/06/16 07/06/16 07/07/16 Cumulative From/Thru 15:00 23:00 07:00 07/04/16 12:27 - 07/07/16 06:29 Intake Total 0 ml 400 ml 1095 ml 2306 ml Output Total 100 ml 600 ml Balance -100 ml 400 ml 1095 ml 1706 ml Intake Oral 0 ml 400 ml 0 ml 1211 ml IV Total 1095 ml 1095 ml Output Urine Total 100 ml 600 ml # Voids 3 2 10 # Bowel Movements 1 1 0 3 Exam General: lying comfortably in soma bed HEENT: EOMI. Anicteric sclerae, Moist Mucous Membranes Neck: Neck supple with full ROM, no tenderness or stiffness with flexion Chest & Lungs: b/l air sound, no crackles, wheezes, or coarse breathing Cardiovascular: RRR, No Murmurs/Rubs/Gallops Abdomen: Soft, obese, Non-tender, Non-distended, No masses, Normoactive bowel tones, Extremities: no cyanosis/clubbing/edema bilaterally Neurological: alert and oriented x1, no focal deficits. No mentation changes within the past 3 days Lab and Diagnostics Result Diagram: 07/06/16 0535 07/07/16 0512 Assessment & Plan Patient is an 85yof with MHx DMII, dementia, HTN, and colon resection presented with acute AMS, initially admitted for presumed meningitis. AMS, present on admission, resolving -- Mentation improved from the initial presentation in a wax-wane pattern -- Electrolytes and CBC unremarkable. Respiratory PCR negative including procalcitonin -- CT-head unremarkable for acute changes, showed extensive microvascular ischemic changes. -- Altered mentation most likely multifactorial: dementia worsened by Oxybutynin -- Added thiamine, holding oxybutynin indefinitely, and D/c ceftriaxone/soma bed. -- Seroquel 12.5mg nightly, Haldol PRN Acute kidney injury, not present on admission, resolved -- Creatine from 0.7 to 1.1, likely inadequate PO intake -- Fluid hydration. Chronic diarrhea, present on admission, stable -- Stool PCR pending -- Patient does not have any diarrhea while here however. Diabetes mellitus type II, non insulin dependent, present on admission, stable -- Placed on sliding scale. holding home metformin -- A1C 6.9. 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 -- Abstain from anticholinergics Overactive bladder, present on admission, ongoing -- D/c oxybutynin -- Will need to coordinate with PCP out patient for alternatives Disposition: Patient essentially medically stable for discharge, however, has significant sun downing, progressively worsening dementia. She would benefit from memory care. Scooby Morris DO Jul 07, 2016 11:55
[2016-07-07 14:00] VITALS: BP 137/75; PULSE 75; RESP 18; O2SAT 98
--- NOTE | 2016-07-07 15:29 | NUR ---
Social Work-readiness for discharge: Data:EMR reviewed. Pt is on day 3 of hospitalization for AMS per H&P. Pt will likely be ready to discharge later today. states pt's daughters are interested in Memory care. ANTOLIN followed up with pt's daughters at bedside, SW role explained. Pt's daughters are wondering about memory care. SW explained that they would have to pay privately for memory care. Daughters state they do not have the money. Daughter informs SW that they have Medicaid and her CM is Ann Hart, daughter is caregiver. SW explained to daughter that most memory care facilities do not take Medicaid unless you have paid privately for 2 years. SW explained lots of pt's with dementia and medicaid end up going to AF,etc. Daughters are in agreement to take pt home today with HH Services. SW provided choice list, no agency preference. SW made referral to [facility] for RN,PT,OT, and ST, access given. Daughters are wanting a hospital bed and also BSC. SW asked UR specialist to call on this. Pt's MCR will not cover this and [facility] takes at least 45 days. ANTOLIN got private quotes for both BSC and hospital and provided this information to daughters. ANTOLIN updated MD. ANTOLIN called pt's CM Mane and left a message. SW will continue to follow. Assessment:pt who has baseline dementia. Plan:Pt to discharge home with 24/ care from daughter. Information provided on rental cost for Hospital bed and BSC. Referral made to [facility] for RN,PT,OT, and ST, access given .SW will continue to follow. KALEB Talavera
--- NOTE | 2016-07-07 17:04 | NUR ---
Social Work-discharge: Data:EMR Reviewed. Pt is on day 3 of hospitalization for AMS per H&P. Pt is medically stable to discharge home today. SW confirmed plan of home with daughters to provide 24/7 care. SW informed Bridgerlee Kruse from [facility] of discharge and faxed in F2F and orders for RN,PT,OT, and ST. Information provided to family regarding private cost for hospital bed and BSC. Pt's CM has been notified of discharge. Pt's daughter to provide transport home today. All updated and agreeable to plan. Assessment:Pt who is has baseline dementia. Plan:Pt to discharge home today via POV. F2F and orders faxed to [facility] for RN,PT,OT, and ST. Daughter to provide 24/7 care at home. Information provided to family regarding private cost for hospital bed and BSC. CM informed of discharge. All updated and agreeable to plan. KALEB Talavera
--- NOTE | 2016-07-07 18:29 | NUR ---
Discharge Patient discharge to home with all belongings at 1827. Explained to patient and her family new medication (Seroquel), when next dose are due, and discharge instructions. Patient and family verbalized understanding. No IV to Dc. Vitals stable. Patient left floor via wheelchair accompanied by daughter and LUMBER PLANER with no signs of distress.
--- NOTE | 2016-07-07 21:38 | PCM.DC.MED ---
Discharge Summary Date of Service Jul 07, 2016 Dates of Hospitalization Date of Hospital Admission Jul 04, 2016 at 15:01 Date of Discharge: Jul 07, 2016 Providers: Admitting Physician: Johnny Sandoval MD Primary Care Physician: Inocencio José MD Attending Physician: Johnny Sandoval MD Diagnosis at Time of Discharge Diagnosis at Time of Discharge AMS, present on admission, stable Acute kidney injury, present on admission, resolved Chronic diarrhea, present on admission, stable Diabetes mellitus type II, non insulin dependent, present on admission, stable Chronically low magnesium, present on admission, ongoing Dementia, present on admission, ongoing Overactive bladder, present on admission, ongoing Procedures XRay, CTs & MRIs PROCEDURE: CT BRAIN WITHOUT CONTRAST INDICATIONS: Altered Mental Status FINDINGS: Image quality: Excellent. CSF spaces: Basal cisterns are patent. No extra-axial fluid collections. The ventricles are symmetric in size and shape. Brain: No intracranial bleeds or masses. There is marked cerebral volume loss for age, with resultant ventricular and sulcal prominence. There are severe periventricular and deep white matter chronic small vessel ischemic changes. There is intracranial internal carotid artery atherosclerosis. There are basal ganglia calcifications. Skull and face: Calvarium and visualized facial bones appear intact, without suspicious lesions. Sinuses: Visualized sinuses and mastoids are clear. IMPRESSION: 1. No acute intracranial findings. 2. Extensive findings associated with chronic microvascular ischemic changes. Dictated by: Alivia Cheung M.D. on 07/04/2016 at 13:59 Brief History "85-year-old female, rhinorrhea, progressive dementia in the last 3 years, family members getting over URI, went to the bathroom this morning came around confused then not responsive verbally to daughter then started flailing her arms and legs despite the fact that she Saying Nothing Hurt. In the emergency department, Haldol 2 since she was flailing at staff, improved with Isabel tent and Haldol, WBC mildly elevated with left shift.No prior meningitis/encephalitis. With every illness recently that was associated with Ativan or anesthetic she seems to have encephalopathy that lasts for many days. Daughter indicates she has chronic diarrhea/constipation since resection decades ago. Intermittent sacral decubitus. Current groin intertrigo. Chronic oxybutynin use." Admission history by Johnny Sandoval MD on 07/04/16 Hospital Course Patient is an 85yof with MHx DMII, dementia, HTN, and colon resection presented with acute AMS, initially admitted for presumed meningitis. Tests including CT- brain without acute pathologies. Patient likely had sun downing, worsened by the addition anticholinergics. She is discharged home with Seroquel. Family are quite involved in patient care. AMS, present on admission, stable -- Mentation improved from the initial presentation in a wax-wane pattern -- Electrolytes and CBC unremarkable. Urine, respiratory viral PCR panel, Legionella, RPR, HSV I/II, and procalcitonin negative -- CT-head unremarkable for acute changes, showed extensive microvascular ischemic changes. -- Altered mentation most likely multifactorial: dementia worsened by Oxybutynin -- Added thiamine, holding oxybutynin indefinitely, and D/c ceftriaxone/[facility] bed. -- Discharged with Seroquel 12.5mg nightly. QTc 392 on this admission. Acute kidney injury, not present on admission, resolved -- Creatine from 0.7 to 1.1, likely inadequate PO intake -- Fluid hydration. Chronic diarrhea, present on admission, stable -- Stool PCR pending -- Patient does not have any diarrhea while here however. Diabetes mellitus type II, non insulin dependent, present on admission, stable -- A1C 6.9. 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 -- Abstain from anticholinergics -- Functional assessment scale 6A Overactive bladder, present on admission, ongoing -- D/c oxybutynin -- Will need to coordinate with PCP out patient for alternatives Exam Vital Signs (Last) Date Time Temp Pulse Resp B/P Pulse Ox O2 Delivery O2 Flow Rate FiO2 07/07/16 14:00 36.8 75 18 137/75 98 Room Air Exam General: lying comfortably in soma bed HEENT: EOMI. Anicteric sclerae, Moist Mucous Membranes Neck: Neck supple with full ROM, no tenderness or stiffness with flexion Chest & Lungs: b/l air sound, no crackles, wheezes, or coarse breathing Cardiovascular: RRR, No Murmurs/Rubs/Gallops Abdomen: Soft, obese, Non-tender, Non-distended, No masses, Normoactive bowel tones, Extremities: no cyanosis/clubbing/edema bilaterally Neurological: alert and oriented x1, no focal deficits. No mentation changes within the past 3 days Test 07/04/16 12:45 07/04/16 12:50 07/04/16 14:39 07/04/16 15:33 Urine Legionella pneumophilia Ag Negative (Negative) Urine Color Yellow (YELLOW) Urine Appearance Clear (CLEAR,HAZY) Urine pH 6.5 (5.0-8.0) Urine Specific [place] 1.020 (1.003-1.035) Urine Protein Tracemg/dL (NEG,TRACE) Urine Glucose (UA) 250mg/dL (NEGATIVE) Urine Ketones Negativemg/dL (NEGATIVE) Urine Occult Blood Negative (NEGATIVE) Urine Nitrite Negative (NEGATIVE) Urine Bilirubin Negative (NEGATIVE) Urine Urobilinogen Normalmg/dL (NORMAL) Urine Leukocyte Esterase Negative (NEGATIVE) Urine RBC 0-2/hpf (0-2) Urine WBC 0-5/hpf (0-5) Urine Epithelial Cells Few/hpf (NONE-MOD) Urine Crystals None seen (NONE SEEN) Urine Bacteria None/hpf (NONE-FEW) Urine Hyaline Casts None/lpf (NONE) Urine Granular Casts None seen (NONE SEEN) Urine Waxy Casts None seen (NONE SEEN) Urine Red Blood Cell Casts None seen (NONE SEEN) Urine White Blood Cell Casts None seen (NONE SEEN) Urine Mucus None seen (None Seen) Urine Trichomonas None seen (NONE SEEN) Urine Yeast None (NONE SEEN) Urinalysis Comment None Urine Culture Reflexed Not indicated Prothrombin Time 10.6sec (8.1-12.5) Prothromb Time International Ratio 0.99ratio Hold Singh Top Tube Received (Received) Test 07/04/16 18:16 07/05/16 05:45 07/05/16 14:30 07/06/16 05:35 Urine Opiates Screen Negative Urine Methadone Screen Negative Urine Barbiturates Screen Negative Urine Amphetamines Screen Negative Urine Benzodiazepines Screen Negative Urine Cocaine Metabolite Screen Negative Urine Cannabinoids Screen Negative Neutrophils (%) (Auto) 66.0% (40-74) Lymphocytes (%) (Auto) 22.4% (14-46) Monocytes (%) (Auto) 10.2% (4-12) Eosinophils (%) (Auto) 0.8% (0-5) Basophils (%) (Auto) 0.4% (0-3) Magnesium Level 1.9mg/dL (1.6-2.6) Troponin T < 0.010ug/L (0.0-0.011) Vitamin B12 Level 935pg/mL (211-946) Folate > 19.9ng/mL (>3.0) Procalcitonin < 0.05ng/mL (See Comment) Free Thyroxine Index 2.4 (1.2-4.9) Thyroxine (T4) 7.4ug/dL (4.5-12.0) Triiodothyronine (T3) Uptake 33% (24-39) Rapid Plasma Reagin Non reactive (Non Reactive) Herpes Simplex Virus I DNA (PCR) Negative (Negative) Herpes Simplex Virus II DNA (PCR) Negative (Negative) Hemoglobin A1c 6.9% (4.8-5.6) White Blood Count 11.3th/mm3 (3.8-10.1) Red Blood Count 5.28mil/mm3 (3.90-5.20) Hemoglobin 15.5g/dL (12.0-15.6) Hematocrit 45.3% (35.0-46.0) Mean Corpuscular Volume 85.8fL (81-100) Mean Corpuscular Hemoglobin 29.4pg (27.0-35.0) Mean Corpuscular Hemoglobin Concent 34.2% (32.0-37.0) Red Cell Distribution Width 13.7% (12.3-15.4) Platelet Count 319bil/L (150-400) Total Bilirubin 0.6mg/dL (0.0-1.2) Aspartate Amino Transf (AST/SGOT) 26U/L (0-50) Alanine Aminotransferase (ALT/SGPT) 20U/L (0-32) Alkaline Phosphatase 76U/L (25-165) Total Protein 7.4g/dL (6.4-8.4) Albumin 4.4g/dL (3.4-5.0) Test 07/07/16 05:12 Sodium Level 142mEq/L (134-144) Potassium Level 4.6mEq/L (3.5-5.2) Chloride Level 103mEq/L (97-108) Carbon Dioxide Level 21mmol/L (18-29) Blood Urea Nitrogen 18mg/dL (8-27) Creatinine 0.75mg/dL (0.57-1.00) Estimat Glomerular Filtration Rate 105mL/min (>59) Glucose Level 184mg/dL (60-99) Calcium Level 9.3mg/dL (8.5-10.1) Discharge Medications Discharge Medications Amlodipine (Amlodipine) 5 Mg Tablet 5 MG PO DAILY (Reported) Cholecalciferol (Vitamin D3) (Vitamin D3) 5,000 Unit Capsule 5,000 UNIT PO DAILY (Reported) Hydrocodone-Acetaminophen 5-325 mg (Hydrocodone-Acetaminophen 5-325 mg) 1 Each Tablet 1.5 TABLET PO BID (Reported) Magnesium Oxide (Magnesium) 250 Mg Tablet 250 MG PO BID (Reported) Metformin (Metformin) 500 Mg Tablet 500 MG PO BID (Reported) Oxybutynin Chloride (Oxybutynin Chloride) 5 Mg Tablet 5 MG PO BID (Reported) Quetiapine Fumarate (Quetiapine Fumarate) 25 Mg Tablet 12.5 MG PO HS 1/2 tablet nightly Prescribed by: ALESSANDRO MORRIS DO As needed Hydrocodone-Acetaminophen 5-325 mg (Hydrocodone-Acetaminophen 5-325 mg) 1 Each Tablet 1.5 TABLET PO QPM PRN PRN For Pain (Reported) Followup Plan Patient Instructions AMS, present on admission, resolving -- You were admitted for altered mentation. I suspect this is due to a combination of your underlining dementia, worsened by a medication you took called oxybutynin -- We have discontinued your oxybutynin. 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 -- Abstain from anticholinergic medications -- You have significant sun-downing. -- We are sending you home with Seroquel 12.5mg, to be taken nightly for this Overactive bladder, present on admission, ongoing -- Oxybutynin has been discontinued. -- Please follow-up with your primary care provider within 1wk for alternatives treatment of Overactive bladder. Follow-up Provider: Inocencio José MD Follow-up with PCP in: 1 week Time spent 35 minutes Attending Statement The patient was seen and examined together with Dr. Alessandro Morris on 07/07/2016 and I have added additional information to the note above. copies to: Incoencio José MD, Phuc H DO Jul 07, 2016 21:37 Trip Ríos MD Jul 08, 2016 10:58
== END 2016-07-07 18:20 | disposition home or self-care (01) ==
LOC: SED 12:25 → EDBD 12:25 → MPC 15:01
PROVIDERS: ADMIT Urology; ATTEND Urology
DX: R41.82 Altered mental status, unspecified (principal); Q41.9 Congenital absence, atresia and stenosis of small intestine, part unspecified; R19.7 Diarrhea, unspecified; E11.9 Type 2 diabetes mellitus without complications; E83.49 Other disorders of magnesium metabolism; F03.90 Unspecified dementia, unspecified severity, without behavioral disturbance, psychotic disturbance, mood disturbance, and anxiety; N32.81 Overactive bladder; I10 Essential (primary) hypertension; Z79.84 Long term (current) use of oral hypoglycemic drugs; M19.90 Unspecified osteoarthritis, unspecified site; I48.91 Unspecified atrial fibrillation
CPT/HCPCS: 36415; 70450; 71010; 80048; 80053; 81000; 82308; 82607; 82746; 82948; 83036; 83735; 84436; 84479; 84484; 85025; 85027; 85610; 86403; 86592; 87040; 87449; 87633; 92526; 92610; 93005; 96374; 99285; G0378; G0480; G8996; G8997; J1630; J1650; J1815; J7030